=== PATIENT | female | born 1950 | race Caucasian/White ===

== ENCOUNTER 2016-08-16 08:30 | Outpatient (RCR) | payer MEDICARE, BC ==
[2014-03-16 16:51] VITALS: BP 156/70
[~2016-08-16 08:30] MED LIST: ALLEGRA ALLERG180 MG PO; CALCIUM 600600 M2 PO; CENTRUM SILVER1 TA1 PO; LEVOTHYROXINE0.05 MG PO; LOTREL 5 MG-401 CAP PO; NORCO 325 MG-7.1 TA1 PO; NORFLEX100 MG PO; PREMARIN 0.60.625 MG PO; THERA TABS1 TAB PO; VITAMIN C500 MG PO
== END 2016-10-02 10:28 | disposition home or self-care (01) ==
LOC: PT 08:30
DX: M43.16 Spondylolisthesis, lumbar region (principal); M48.06 Spinal stenosis, lumbar region

== ENCOUNTER 2017-01-11 17:28 | Emergency (ER) | payer MEDICARE, BC ==
[~2017-01-11] VITALS: Ht 154.9 cm; Wt 87.3 kg
[2017-01-11] MEDS ORDERED: ZYRTEC ALLERGY10 MG PO (17:37)
[2017-01-11] MEDS ORDERED: SINGULAIR PO (17:38)
[2017-01-11] MEDS ORDERED: MELOXICAM7.5 MG PO (20:17)
[2017-01-11] MEDS ORDERED: CEPHALEXIN500 M1 PO (20:17)
[2017-01-11] MEDS ORDERED: PREDNISONE20 M1 PO (20:17)
[2017-01-11 20:36] VITALS: BP 142/61
== END 2017-01-11 20:55 | disposition home or self-care (01) ==
LOC: ED 17:28
DX: S79.911A Unspecified injury of right hip, initial encounter (principal); G89.18 Other acute postprocedural pain; M54.5 Low back pain; M96.840 Postprocedural hematoma of a musculoskeletal structure following a musculoskeletal system procedure; Y83.8 Other surgical procedures as the cause of abnormal reaction of the patient, or of later complication, without mention of misadventure at the time of the procedure; M70.60 Trochanteric bursitis, unspecified hip
CPT/HCPCS: J1885; J7512

== ENCOUNTER → 2017-01-16 | Emergency (ER) | payer MEDICARE, BC ==
[~2017-01-16] MED LIST changes: +CEPHALEXIN500 M1 PO; +MELOXICAM7.5 MG PO; +PREDNISONE20 M1 PO; +SINGULAIR PO; +ZYRTEC ALLERGY10 MG PO
[2017-01-16 11:49] VITALS: BP 155/74
== END ==
LOC: ED 11:16
DX: Z48.01 Encounter for change or removal of surgical wound dressing (principal)

== ENCOUNTER 2017-04-10 16:00 | Outpatient (RCR) | payer MEDICARE, BC ==
[2017-01-16 11:49] VITALS: BP 155/74
== END 2017-04-10 17:05 | disposition home or self-care (01) ==
LOC: PT 16:00
DX: Z98.1 Arthrodesis status (principal); M53.2X6 Spinal instabilities, lumbar region; M43.16 Spondylolisthesis, lumbar region; M48.06 Spinal stenosis, lumbar region

== ENCOUNTER → 2017-10-20 | Outpatient (CLI) | payer MEDICARE, BC ==
[2017-01-16 11:49] VITALS: BP 155/74
== END ==
LOC: RAD 16:00 → VAS 16:51
DX: I51.7 Cardiomegaly (principal)

== ENCOUNTER → 2018-05-26 | Outpatient (CLI) | payer MEDICARE, BC ==
[2017-01-16 11:49] VITALS: BP 155/74
== END ==
LOC: RAD 10:42
DX: Z13.820 Encounter for screening for osteoporosis (principal); M85.89 Other specified disorders of bone density and structure, multiple sites

== ENCOUNTER → 2018-05-26 | Outpatient (CLI) | payer MEDICARE, BC ==
[2017-01-16 11:49] VITALS: BP 155/74
== END ==
LOC: MAMMO 10:38
DX: Z12.31 Encounter for screening mammogram for malignant neoplasm of breast (principal)

== ENCOUNTER → 2019-06-22 | Outpatient (CLI) | payer MEDICARE, BC ==
[2017-01-16 11:49] VITALS: BP 155/74
== END ==
LOC: MAMMO 13:40
DX: Z12.31 Encounter for screening mammogram for malignant neoplasm of breast (principal)

== ENCOUNTER → 2020-06-20 | Outpatient (CLI) | payer MEDICARE, BC ==
[2017-01-16 11:49] VITALS: BP 155/74
== END ==
LOC: MAMMO 13:40
DX: Z12.31 Encounter for screening mammogram for malignant neoplasm of breast (principal)

== ENCOUNTER → 2021-06-21 | Outpatient (CLI) | payer MEDICARE, BC | LOC: MAMMO 09:00 | DX: Z13.820 Encounter for screening for osteoporosis (principal); Z78.0 Asymptomatic menopausal state; M85.88 Other specified disorders of bone density and structure, other site ==

== ENCOUNTER → 2021-06-21 | Outpatient (CLI) | payer MEDICARE, BC | LOC: MAMMO 09:00 | DX: Z12.31 Encounter for screening mammogram for malignant neoplasm of breast (principal) ==

== ENCOUNTER 2022-05-13 08:00 | Outpatient (RCR) | payer MEDICARE, BC | END 2022-06-10 09:27 | disposition home or self-care (01) | LOC: OT 08:00 | DX: Z96.692 Finger-joint replacement of left hand (principal); Z87.39 Personal history of other diseases of the musculoskeletal system and connective tissue ==

== ENCOUNTER → 2022-07-11 | Outpatient (CLI) | payer MEDICARE, BC | LOC: MAMMO 08:07 | DX: N64.89 Other specified disorders of breast (principal) ==

== ENCOUNTER → 2023-10-14 | Outpatient (CLI) | payer MEDICARE, BC | LOC: MAMMO 10:43 | DX: Z12.31 Encounter for screening mammogram for malignant neoplasm of breast (principal); R10.9 Unspecified abdominal pain; Z78.0 Asymptomatic menopausal state ==

== ENCOUNTER → 2024-10-25 | Outpatient (CLI) | payer MEDICARE, BC | LOC: MAMMO 13:30 | DX: Z12.31 Encounter for screening mammogram for malignant neoplasm of breast (principal) ==

== ENCOUNTER → 2024-11-25 | Outpatient (CLI) | payer MEDICARE, BC | LOC: RAD 13:40 | DX: Z01.818 Encounter for other preprocedural examination (principal) ==